=== PATIENT | female | born 2000 | race Caucasian/White ===

== ENCOUNTER 2021-05-25 00:56 | Emergency (ER) | payer BC ==
[~2021-05-25] VITALS: Ht 160 cm; Wt 72.6 kg
[~2021-05-25 00:56] MED LIST: HYDR-1231 PO
[2021-05-25] MEDS ORDERED: NORG1TAB16 (01:07)
[2021-05-25] MEDS ORDERED: ALBUTEROL (01:07)
--- NOTE | 2021-05-25 01:13 | ED Psychosocial ---
General Chief Complaint: Psych/Social Disorder Stated Complaint: SUICIDAL IDEATIONS,CUT ON LEFT THIGH Source: patient, EMS Exam Limitations: no limitations History of Present Illness Date Seen by Provider: May 25, 2021 Time Seen by Provider: 00:51 Initial Comments Patient to the ER by EMS from home with chief complaint that she was speaking to her fianc in [place] and indicated to him that she was cutting on herself again so he called 911. She says she used a razor blade and made a cut along her left thigh. She says she has a history of cutting. She is feeling suicidal for the past several days. She says nothing particular has set her off but she has been fighting with her mother money problems and is planning on moving to [place]. She is with a therapist at [place], [place] and does not feel that she has been receiving very successful help there. She has never stayed in inpatient hospital for psychiatric care. She would be willing to consider this. She uses marijuana, vaporizers and occasionally drinks alcohol. She has not done anything tonight to kill herself besides the cutting. She says she does not actually have a plan in place how she would kill herself tonight. She is on control and takes Claritin for allergies. She has an inhaler for intermittent, allergic induced asthma. She is had no fever chills cough nausea vomiting sore throat nor has she had any sick contacts. She has not had vaccination for Covid or influenza. She does not recall the last time she had a tetanus vaccine. Allergies and Home Medications Allergies Coded Allergies: No Known Drug Allergies (Unverified , 11/15/13) Patient Home Medication List Home Medication List Reviewed: Yes Norgestrel-Ethinyl Estradiol (Cryselle-28 Tablet) 1 Each Tablet, (Reported) Entered as Reported by: AZUL ELLIOTT on 05/25/21106 Last Action: New Order [Albuterol] , (Reported) Entered as Reported by: AZUL ELLIOTT on 05/25/21106 Last Action: New Order Discontinued Medications Hydrocodone Bit/Acetaminophen (Hydrocodone-Apap 5-325 Tablet) 1 Tab Tablet, 1 TAB PO Q4H PRN for PAIN Discontinued Reason: No Longer Taking Prescribed by: GREG GONZALEZ on 11/16/13 0021 Last Action: Discontinued Review of Systems Constitutional: No chills, No fever, No malaise EENTM: No ear discharge, No hearing loss Respiratory: No cough, No short of breath Cardiovascular: No chest pain, No edema Gastrointestinal: No abdominal pain, No nausea, No vomiting Genitourinary: No discharge, No dysuria : No Control/STD Prophylaxis: BC Pills Musculoskeletal: No back pain, No joint pain Skin: see HPI Psychiatric/Neurological: Depressed All Other Systems Reviewed Negative Unless Noted: Yes Past Xflozsa-Axlbol-Urahgg Hx Patient Social History Tobacco Use?: No Use of E-Cig and/or Vaping dev: Yes E-Cig or Vaping type used: Nicotine Substance use?: Yes Substance type: Marijuana Alcohol Use?: Yes Alcohol type: Beer Alcohol Frequency: Once in a while Past Medical History Fractures Physical Exam Vital Signs - First Documented 05/25/21 00:56 Temp 36.4 Pulse 102 Resp 18 B/P (MAP) 148/96 (113) Pulse Ox 100 O2 Delivery Room Air Capillary Refill : Height, Weight, BMI Height: 5'2" Weight: 149lbs. oz. [id number]; BMI Method: General Appearance: WD/WN, mild distress (Smiling and occasionally tearful throughout her interview.) HEENT: PERRL/EOMI, pharynx normal Neck: full range of motion, normal inspection Respiratory: lungs clear, normal breath sounds, no respiratory distress, no accessory muscle use Cardiovascular: normal peripheral pulses, regular rate, rhythm Peripheral Pulses: 2+ Dorsalis Pedis (R), 2+ Left Dors-Pedis (L), 2+ Radial Pulses (R), 2+ Radial Pulses (L) Neurologic/Psychiatric: alert, oriented x 3 Appearance/Memory: appropriate appearance, appropriate insight, neat Behavior/Eye Contact: cooperative, good eye contact, normal speech Thoughts/Hallucinations: normal thought pattern, no apparent hallucination Progress/Results/Core Measures Results/Orders Lab Results Laboratory Tests Test 05/25/21 01:10 05/25/21 01:27 Range/Units Urine Color YELLOW Urine Clarity CLEAR Urine pH 5.5 5-9 Urine Specific Barto >=1.030 1.016-1.022 Urine Protein NEGATIVE NEGATIVE Urine Glucose (UA) NEGATIVE NEGATIVE Urine Ketones TRACE H NEGATIVE Urine Nitrite NEGATIVE NEGATIVE Urine Bilirubin NEGATIVE NEGATIVE Urine Urobilinogen 0.2 < = 1.0 MG/DL Urine Leukocyte Esterase NEGATIVE NEGATIVE Urine RBC (Auto) NEGATIVE NEGATIVE Urine RBC NONE /HPF Urine WBC NONE /HPF Urine Squamous Epithelial Cells 0-2 /HPF Urine Crystals NONE /LPF Urine Bacteria TRACE /HPF Urine Casts NONE /LPF Urine Mucus SMALL H /LPF Urine Culture Indicated NO Urine Opiates Screen NEGATIVE NEGATIVE Urine Oxycodone Screen NEGATIVE NEGATIVE Urine Methadone Screen NEGATIVE NEGATIVE Urine Propoxyphene Screen NEGATIVE NEGATIVE Urine Barbiturates Screen NEGATIVE NEGATIVE Ur Tricyclic Antidepressants Screen NEGATIVE NEGATIVE Urine Phencyclidine Screen NEGATIVE NEGATIVE Urine Amphetamines Screen NEGATIVE NEGATIVE Urine Methamphetamines Screen NEGATIVE NEGATIVE Urine Benzodiazepines Screen NEGATIVE NEGATIVE Urine Cocaine Screen NEGATIVE NEGATIVE Urine Cannabinoids Screen POSITIVE H NEGATIVE White Blood Count 10.3 4.3-11.0 10^3/uL Red Blood Count 4.82 3.80-5.11 10^6/uL Hemoglobin 13.5 11.5-16.0 g/dL Hematocrit 41 35-52 % Mean Corpuscular Volume 85 80-99 fL Mean Corpuscular Hemoglobin 28 25-34 pg Mean Corpuscular Hemoglobin Concent 33 32-36 g/dL Red Cell Distribution Width 13.2 10.0-14.5 % Platelet Count 315 130-400 10^3/uL Mean Platelet Volume 9.8 9.0-12.2 fL Immature Granulocyte % (Auto) 0 % Neutrophils (%) (Auto) 59 42-75 % Lymphocytes (%) (Auto) 31 12-44 % Monocytes (%) (Auto) 6 0-12 % Eosinophils (%) (Auto) 4 0-10 % Basophils (%) (Auto) 0 0-10 % Neutrophils # (Auto) 6.1 1.8-7.8 10^3/uL Lymphocytes # (Auto) 3.2 1.0-4.0 10^3/uL Monocytes # (Auto) 0.6 0.0-1.0 10^3/uL Eosinophils # (Auto) 0.5 H 0.0-0.3 10^3/uL Basophils # (Auto) 0.0 0.0-0.1 10^3/uL Immature Granulocyte # (Auto) 0.0 0.0-0.1 10^3/uL Sodium Level 138 135-145 MMOL/L Potassium Level 3.7 3.6-5.0 MMOL/L Chloride Level 110 H 98-107 MMOL/L Carbon Dioxide Level 15 L 21-32 MMOL/L Anion Gap 13 5-14 MMOL/L Blood Urea Nitrogen 10 7-18 MG/DL Creatinine 0.82 0.60-1.30 MG/DL Estimat Glomerular Filtration Rate 90 BUN/Creatinine Ratio 12 Glucose Level 125 H 70-105 MG/DL Calcium Level 9.2 8.5-10.1 MG/DL Corrected Calcium 9.0 8.5-10.1 MG/DL Total Bilirubin 0.6 0.1-1.0 MG/DL Aspartate Amino Transf (AST/SGOT) 16 5-34 U/L Alanine Aminotransferase (ALT/SGPT) 9 0-55 U/L Alkaline Phosphatase 49 40-136 U/L Total Protein 7.9 6.4-8.2 GM/DL Albumin 4.3 3.2-4.5 GM/DL Salicylates Level < 5.0 L 5.0-20.0 MG/DL Acetaminophen Level < 10 L 10-30 UG/ML Serum Alcohol < 10 <10 MG/DL My Orders Orders - SARITHA AGUILAR Ua Culture If Indicated (05/25/21 01:05) Cbc With Automated Diff (05/25/21:05) Comprehensive Metabolic Panel (05/25/21:05) Alcohol (05/25/21:05) Drug Screen Stat (Urine) (05/25/21:05) Acetaminophen (05/25/21:05) Salicylate (05/25/21:05) Ekg Tracing (05/25/21:05) Ed Iv/Invasive Line Start (05/25/21:05) Monitor-Rhythm Ecg Trace Only (05/25/21:05) Bh Status Checks/Observation Q15M (05/25/21:05) Urine Bedside (05/25/21:05) Vital Signs/I&O 05/25/21 00:56 Temp 36.4 Pulse 102 Resp 18 B/P (MAP) 148/96 (113) Pulse Ox 100 O2 Delivery Room Air Progress Progress Note #1: Time: 01:11 Progress Note SI work-up. We will have her get into a gown so we can examine her legs arms and trunk. We will have the screener talk to her. Progress Note #2: Time: 03:30 Progress Note Other than the cannabis which she has already admitted to she has unremarkable lab results. She is medically cleared for outpatient or inpatient therapy. [facility] has called and and they are doing a telehealth consult for screening at this time. Progress Note #3: Time: 04:35 Progress Note The behavioral health screener has concluded her screening and she and patient agree as well as this provider that a safety plan can be put in place and she can follow-up outpatient. Initial ECG Impression Date: May 25, 2021 Initial ECG Impression Time: 01:16 Initial ECG Rate: 94 Initial ECG Rhythm: Normal Sinus Initial ECG Intervals: Normal Initial ECG Impression: Normal Comment Normal sinus rhythm without clinically relevant ST elevation or depression. Departure Impression Primary Impression: Deliberate self-cutting Additional Impression: Depression with suicidal ideation Disposition: 01 HOME, SELF-CARE Condition: Stable Departure-Patient Inst. Decision time for Depature: 04:36 Ref[facility]: [facility] [place] Primary Care Physician Patient Instructions: Suicide Prevention, Self-Harm (DC) Add. Discharge Instructions: Keep the wound clean with regular soap and water. No bandages necessary however if you would like to cover it with a dressing or triple antibiotic ointment that is acceptable. Return to the ER if you are having worsening concerns. All discharge instructions reviewed with patient and/or family. Voiced understanding. Work/School Note: Work Release Form Date Seen in the Emergency Department: May 25, 2021 Return to Work: May 26, 2021 Restrictions: No Restrictions SARITHA AGUILAR May 25, 2021 01:13
[2021-05-25 01:19] LABS: BILIRUBIN,URINE NEGATIVE (NEGATIVE); CLARITY,URINE CLEAR; COLOR,URINE YELLOW; GLUCOSE, URINE (UA) NEGATIVE (NEGATIVE); KETONES,URINE TRACE (NEGATIVE); LEUKOCYTE ESTERASE ,URINE NEGATIVE (NEGATIVE); NITRITE,URINE NEGATIVE (NEGATIVE); PH,URINE 5.5 (5-9); PROTEIN,URINE NEGATIVE (NEGATIVE)
[2021-05-25 01:28] LABS: BACTERIA,URINE TRACE /HPF; SQUAMOUS EPITHELIAL CELL,UR 0-2 /HPF
[2021-05-25 01:34] LABS: BASOPHILS % (AUTO) 0 % (0-10); EOSINOPHILS # (AUTO) 0.5 10^3/uL (0.0-0.3); EOSINOPHILS % (AUTO) 4 % (0-10); HEMATOCRIT 41 % (35-52); HEMOGLOBIN 13.5 g/dL (11.5-16.0); LYMPHOCYTES # (AUTO) 3.2 10^3/uL (1.0-4.0); LYMPHOCYTES % (AUTO) 31 % (12-44); MEAN CORPUSCULAR HEMOGLOBIN 28 pg (25-34); MEAN CORPUSCULAR HGB CONC 33 g/dL (32-36); MEAN CORPUSCULAR VOLUME 85 fL (80-99); MEAN PLATELET VOLUME 9.8 fL (9.0-12.2); MONOCYTES # (AUTO) 0.6 10^3/uL (0.0-1.0); MONOCYTES % (AUTO) 6 % (0-12); NEUTROPHILS # (AUTO) 6.1 10^3/uL (1.8-7.8); NEUTROPHILS % (AUTO) 59 % (42-75); PLATELET COUNT 315 10^3/uL (130-400); WHITE BLOOD COUNT 10.3 10^3/uL (4.3-11.0)
[2021-05-25 01:35] LABS: AMPHETAMINE SCREEN, URINE NEGATIVE (NEGATIVE); BARBITURATE SCREEN URINE NEGATIVE (NEGATIVE); BENZODIAZEPINES SCREEN URINE NEGATIVE (NEGATIVE); CANNABINOID SCREEN, URINE POSITIVE (NEGATIVE); COCAINE SCREEN URINE NEGATIVE (NEGATIVE); METHAMPHETAMINE SCREEN URINE S NEGATIVE (NEGATIVE); OPIATE SCREEN URINE NEGATIVE (NEGATIVE)
[2021-05-25 01:36] LABS: METHADONE STAT NEGATIVE (NEGATIVE); OXYCODONE STAT NEGATIVE (NEGATIVE); PROPOXYPHENE STAT NEGATIVE (NEGATIVE); TRICYCLIC ANTIDEPRESSANTS SCRE NEGATIVE (NEGATIVE)
[2021-05-25 01:43] LABS: CHLORIDE 110 MMOL/L (98-107); POTASSIUM 3.7 MMOL/L (3.6-5.0); SODIUM 138 MMOL/L (135-145)
[2021-05-25 01:44] LABS: ALBUMIN 4.3 GM/DL (3.2-4.5)
[2021-05-25 01:45] LABS: CALCIUM 9.2 MG/DL (8.5-10.1)
[2021-05-25 01:46] LABS: GLUCOSE 125 MG/DL (70-105); TOTAL PROTEIN 7.9 GM/DL (6.4-8.2)
[2021-05-25 01:47] LABS: CARBON DIOXIDE 15 MMOL/L (21-32)
[2021-05-25 01:48] LABS: BILIRUBIN,TOTAL 0.6 MG/DL (0.1-1.0)
[2021-05-25 01:50] LABS: ALKALINE PHOSPHATASE 49 U/L (40-136); CREATININE SERUM 0.82 MG/DL (0.60-1.30); GFR ESTIMATED 90
[2021-05-25 01:51] LABS: BUN/CREATININE RATIO 12
[2021-05-25 01:53] LABS: ALANINE AMINOTRANSFERASE 9 U/L (0-55); SALICYLATE < 5.0 MG/DL (5.0-20.0)
[2021-05-25 01:56] LABS: ACETAMINOPHEN < 10 UG/ML (10-30)
[2021-05-25 05:30] VITALS: BP 132/78
== END 2021-05-25 05:35 | disposition home or self-care (01) ==
LOC: EDUNIT# 01:00 → ER 01:04
DX: S71.112A Laceration without foreign body, left thigh, initial encounter (principal); F32.9 Major depressive disorder, single episode, unspecified; X78.8XXA Intentional self-harm by other sharp object, initial encounter
CPT/HCPCS: 12001; 80053; 80306; 81000; 84703; 85025; 93005; 99283; G0480 ×3; 36415; 80320; 80329